=== PATIENT | male | born 1970 | race American Indian/Alaskan Native ===

== ENCOUNTER 2019-02-01 16:33 | Emergency (ER) | payer MEDICAID ==
[~2019-02-01] VITALS: Ht 170.2 cm; Wt 72.7 kg
[~2019-02-01 16:33] MED LIST: AZIT250T PO; IBUP-1986 PO
[2019-02-01 16:54] VITALS: BP 154/103
[2019-02-01] MEDS ORDERED: PENI250T2 PO (17:49)
[2019-02-01] MEDS ORDERED: NAPR-56 PO (17:49)
[2019-02-01] MEDS ORDERED: HYDROcodone/acetaminophen 10/325mg tab PO ONE (17:50)
== END 2019-02-01 18:04 | disposition home or self-care (01) ==
LOC: ER 16:33
DX: K04.7 Periapical abscess without sinus (principal); Z90.49 Acquired absence of other specified parts of digestive tract; Z98.890 Other specified postprocedural states; Z79.899 Other long term (current) drug therapy
CPT/HCPCS: 99283

== ENCOUNTER 2020-06-21 12:52 | Emergency (ER) | payer MEDICAID ==
[~2020-06-21] VITALS: Ht 165.1 cm; Wt 88.6 kg
[2020-06-21 12:54] VITALS: BP 162/87
[2020-06-21] MEDS ORDERED: SULF1TAB49 PO (13:13)
[2020-06-21] MEDS ORDERED: CEPH-572 PO (13:13)
[2020-06-21] MEDS ORDERED: TETanus/Pertussis (Acell)/Diphther VAC/PF (Tdap-Adult) 0.5ml syringe IMVAC ONE (13:15)
[2020-06-21] MEDS ORDERED: cephalexin 250mg capsule PO ONE (13:15)
[2020-06-21] MEDS ORDERED: sulfamethoxazole/trimethoprim DS (800/160mg) tablet PO ONE (13:15)
== END 2020-06-21 13:53 | disposition home or self-care (01) ==
LOC: ER 12:52
DX: L02.01 Cutaneous abscess of face (principal); Z90.49 Acquired absence of other specified parts of digestive tract; Z72.89 Other problems related to lifestyle; Z79.899 Other long term (current) drug therapy
CPT/HCPCS: 90471; 90715; 99283